=== PATIENT | male | born 1995 | race African-American/Black ===

== ENCOUNTER 2023-12-31 09:05 | Outpatient (AMB) | payer OTHER, SELFPAY ==
--- NOTE | 2023-12-31 09:08 | A.OFFPC_ITS ---
Vital Signs 12/31/23 09:15 Height 5 ft 5.75 in Weight 143 lb 2 oz BMI 23.3 BP 110/72 Blood Pressure Location Rt brachial Position Sitting Respiration 12 Pulse 77 Pulse Source Pulse Oximeter Temp 98.6 F Temp Source Oral Pulse Oximetry (%) 99 Oxygen Delivery Method Room Air Intake Visit Reasons: [employer] Est care Intake Note: New patient visit Allergies Penicillins Allergy (Mild, Verified 12/31/23 09:13) Rash Tobacco use date assessed: 12/31/23 Dental Screening Dental Screen Date: 12/31/23 Did you have a dental visit in the last 12 months?: Yes Did you have a dental problem in the last 6 months where you did not have access to dental care?: No Was dental information given to patient?: Patient has dentist HPI HPI Comments History of Present Illness Details The patient is a 28 year old male with a past medical history of HSV presenting to [facility] care After initial episode of HSV has not had any recurrent episodes. UTD with dental ROS CONSTITUTIONAL: Denies weight loss, fever and chills. HEENT: Denies changes in vision and hearing. RESPIRATORY: Denies SOB and cough. CV: Denies palpitations and CP GI: Denies abdominal pain, nausea, vomiting and diarrhea. : Denies dysuria and urinary frequency. MSK: Denies new myalgia and joint pain. SKIN: Denies rash and pruritus. NEUROLOGICAL: Denies headache PSYCHIATRIC: Denies recent changes in mood. PHYSICAL EXAM: GENERAL: Alert and oriented x 3. NAD EYES: EOMI. Anicteric. HENT: Moist mucous membranes. No scleral icterus. No cervical lymphadenopathy. LUNGS: Clear to auscultation bilaterally. CARDIOVASCULAR: Regular rate and rhythm. No murmur. No JVD. ABDOMEN: Soft, non-tender +bs EXTREMITIES: No edema. Non-tender. SKIN: No rashes or lesions. Warm. NEUROLOGIC: No focal neurological deficits. CN II-XII grossly intact PSYCHIATRIC: Cooperative. Appropriate mood and affect [facility] Social History Housing: House Patient Tobacco Use Status: Never used Tobacco e-Cigarette/Vaping Use: Former Use Second Hand Smoke Exposure: No service: No Current occupational status: employed Current occupation: [employer] Current occupational exposures/hazards: No Cognitive needs: No Hearing needs: No Vision needs: Yes (glasses) Questionnaire PHQ-9 Over the last 2 weeks, how often have you been bothered by any of the following problems? 1. Little interest or pleasure in doing things: not at all 2. Feeling down, depressed, or hopeless: not at all 3. Trouble falling or staying asleep, or sleeping too much: several days 4. Feeling tired or having little energy: not at all 5. Poor appetite or overeating: not at all 6. Feeling bad about yourself - or that you are a failure or have let yourself or your family down: several days 7. Trouble concentrating on things, such as reading the newspaper or watching television: more than half the days 8. Moving or speaking so slowly that other people could have noticed. Or the opposite - being so fidgety or restless that you have been moving around a lot more than usual: several days 9. Thoughts that you would be better off or of hurting yourself in some way: not at all Total score: 5 Depression Screening Interpretation: Positive Depression Screening Done: Yes 72067 - PHQ-9 Billing: Yes Source: Developed by Drs. Freddie Robles, Lise Bhardwaj, Nav Roldan and colleagues, with an educational henrietta from [employer]. Thrive Questionnaire Date Thrive assessed: 12/31/23 I am a: Patient What is your living situation today?: I have a steady place to live Within the past 12 months, did the food you bought not last and you didn't have the money to get more?: Never true Within the past 12 months, did you worry whether your food would run out before you got money to buy more?: Never true Do you have trouble paying for medicines?: No Do you have trouble getting transportation to medical appointments?: No Do you have trouble paying your heating and electricity bill?: No Do you have trouble taking care of your child, family member or friend?: No Do you have trouble with day-to-day activities such as bathing, preparing meals, shopping, managing finances, etc.?: No Are you currently unemployed and looking for a job?: No Are you interested in more education?: Yes Please select the resources that you would like help with: Education Currently or been in a relationship where the following occur: No concerns reported THRIVE Score: 0 AUDIT C Alcohol Use Questionnaire (AUDIT-C) 1. How often do you have a drink containing alcohol?: Monthly or less 2. How many drinks containing alcohol do you have on a typical day when you are drinking?: 1 or 2 3. How often do you have six or more drinks on one occasion?: Never Total Score: 1 ADRIAN-7 AMB Questionnaire ADRIAN-7 Date ADRIAN - 7 assessed: 12/31/23 Feeling nervous, anxious, or on edge: 2 = More than half the days Not being able to stop or control worryin = More than half the days Worrying too much about different things: 1 = Several days Trouble relaxin = Several days Being so restless that it is hard to sit still: 2 = More than half the days Feeling afraid as if something awful might happen: 1 = Several days Source: Developed by Drs. Freddie Robles, Lise Bhardwaj, Nav Roldan and colleagues, with an educational henrietta from [employer]. ADRIAN-7 Assessment Billing ADRIAN-7 Assessment Tool: ADRIAN-7 Assessment 56963 Physical exam (Primary Care) Vital Signs: Last Vital Signs Temp 98.6 F 12/31/23 09:15 Pulse 77 12/31/23 09:15 Resp 12 12/31/23 09:15 BP 110/72 12/31/23 09:15 Pulse Ox 99 12/31/23 09:15 Oxygen Delivery Method Room Air 12/31/23 09:15 BMI result Body Mass Index 23.3 Tobacco/Smoking Status: Tobacco use Status Tobacco use date assessed 12/31/23 12/31/23 09:20 Patient Tobacco Use Status Never used Tobacco 12/31/23 09:20 e-Cigarette/Vaping Use Former Use 12/31/23 09:20 PHQ-9: PHQ-9 Score PHQ-9: Total score 5 01/11/24 13:21 Depression Screening Interpretation: Positive Thrive Assessment: Date of Thrive Assessment Date Thrive assessed 12/31/23 12/31/23 09:20 Currently or been in a relationship where the following occur: No concerns reported Coding Level of Care Code Est Pt Level 4 (67873) Diagnoses Encounter to establish care Z76.89 Encounter for assessment of STD exposure Z20.2 Additional Codes ADRIAN-7 Assessment Billing - ADRIAN-7 Assessment Tool: ADRIAN-7 Assessment 92083 ([id number]) Assessment & Plan Assessment & Plan (1) Encounter to establish care: Code(s): Z76.89 - Persons encountering health services in other specified circumstances Category: Medical Plan: 28 y/o f presenting to establish care. past medical, surgical, social and family history reviewed. chart updated (2) Encounter for assessment of STD exposure: Code(s): Z20.2 - Contact with and (suspected) exposure to infections with a predominantly sexual mode of transmission Category: Medical Plan: HSV positive. valtrex ordered Medications: New valacyclovir (Valtrex) 500 mg PO BID PRN 18 tabs 1RF rash 3 days
[2023-12-31 09:15] VITALS: BP 110/72; PULSE 77; RESP 12; TEMP 37; O2SAT 99; BMI 23.3
== END 2023-12-31 09:52 | disposition home or self-care (01) ==
PROVIDERS: Visit Provider Internal Medicine
DX: Z76.89 Persons encountering health services in other specified circumstances (principal); Z20.2 Contact with and (suspected) exposure to infections with a predominantly sexual mode of transmission

== ENCOUNTER → 2023-12-31 09:05 | Outpatient (BNVA) | payer OTHER, SELFPAY | PROVIDERS: Visit Provider Internal Medicine | DX: Z76.89 Persons encountering health services in other specified circumstances (principal); Z20.2 Contact with and (suspected) exposure to infections with a predominantly sexual mode of transmission | CPT/HCPCS: 96127 ==